=== PATIENT | female | born 1960 | race Caucasian/White ===

== ENCOUNTER 2017-06-07 09:10 | Emergency (ER) | payer BC ==
[2017-06-07 09:21] VITALS: BP 127/71
--- NOTE | 2017-06-07 09:38 | UC ---
Lower Extremity/Ankle HPI - HPI Summary HPI Summary: 56 yo female injured right foot stepping off boat onto dock jammed it injured yesterday now unable to bear wt and using crutches - History of Current Complaint Chief Complaint: UCLowerExtremity Stated Complaint: FOOT INJURY Time Seen by Provider: 06/07/17 09:28 Hx Obtained From: Patient Onset/Duration: Gradual Onset, Lasting Hours Severity Initially: Mild Severity Currently: Moderate Pain Intensity: 0 - at rest Pain Scale Used: 0-10 Numeric Aggravating Factor(s): Standing, Ambulation Alleviating Factor(s): Rest Able to Bear Weight: No - Allergies/Home Medications Allergies/Adverse Reactions: Allergies Allergy/AdvReac Type Severity Reaction Status Date / Time No Known Allergies Allergy Verified 06/07/17 09:21 PMH/Surg Hx/FS Hx/Imm Hx Previously Healthy: Yes - Surgical History Surgical History: None - Family History Known Family History: Negative: Cardiac Disease, Hypertension, Diabetes - Social History Alcohol Use: None Substance Use Type: None Smoking Status (MU): Never Smoked Tobacco Review of Systems Constitutional: Negative Skin: Negative Eyes: Negative ENT: Negative Respiratory: Negative Cardiovascular: Negative Gastrointestinal: Negative Genitourinary: Negative Motor: Negative Neurovascular: Negative Musculoskeletal: Arthralgia Neurological: Negative Psychological: Negative Is Patient Immunocompromised?: No All Other Systems Reviewed And Are Negative: Yes Physical Exam Triage Information Reviewed: Yes Appearance: Well-Appearing, No Pain Distress, Well-Nourished Vital Signs: Initial Vital Signs Temp 97.8 F 06/07/17 09:15 Pulse 55 06/07/17 09:15 Resp 16 06/07/17 09:15 BP 127/71 06/07/17 09:15 Pulse Ox 100 06/07/17 09:15 Vital Signs Reviewed: Yes Eyes: Positive: Conjunctiva Clear ENT: Positive: Hearing grossly normal. Negative: Nasal congestion, Nasal drainage, Trismus, Muffled/hoarse voice Neck: Positive: Supple, Nontender Respiratory: Positive: Lungs clear, Normal breath sounds, No respiratory distress Cardiovascular: Positive: RRR, No Murmur Musculoskeletal: Positive: Strength Intact, ROM Intact, Other: - tender dorsum or mid foot/no swelling or deformity Neurological: Positive: Alert Psychological Exam: Normal Skin Exam: Normal Diagnostics - Radiology No standard instances Xray Interpretation: No Acute Changes Radiology Interpretation Completed By: Radiologist Lower Extremity Course/Dx - Differential Dx/Diagnosis Provider Diagnoses: right foot sprain Discharge - Discharge Plan Condition: Stable Disposition: HOME Patient Education Materials: Foot Sprain (ED) Referrals: Socorro Burrell MD [Primary Care Provider] -
--- NOTE | 2017-06-07 10:10 | RAD ---
Indication: RIGHT whole foot pain following stepping down into a boat. Comparison: No relevant prior exams available on the [facility] PACS for comparison. Technique: AP, lateral, and oblique views RIGHT foot. REPORT AND IMPRESSION: Bone density appears decreased throughout. No fracture or radiographic stigmata of stress reaction evident. Mild osteoarthritis at the first metatarsal phalangeal joint and interphalangeal joint of the great toe. Small os tibiale externum accessory ossicle. Unremarkable soft tissue contours.
== END 2017-06-07 10:27 | disposition home or self-care (01) ==
LOC: UCEAST 09:10
DX: S93.601A Unspecified sprain of right foot, initial encounter (principal); W23.0XXA Caught, crushed, jammed, or pinched between moving objects, initial encounter; Y93.89 Activity, other specified; Y92.89 Other specified places as the place of occurrence of the external cause
CPT/HCPCS: 99211; G0463

== ENCOUNTER 2017-06-23 07:32 | Emergency (ER) | payer BC ==
[2017-06-23 08:00] VITALS: BP 158/87
--- NOTE | 2017-06-23 08:23 | UC ---
Cardiac HPI - HPI Summary HPI Summary: ONSET OF LEFT ANTERIOR CHEST PAIN 4 DAYS AGO. DESCRIBED A BURNING/HEAVINESS. HAS SEVERAL EPISODES A DAY LASTING ABOUT 15 MINUTES. DENIES SOB, NAUSEA, SWEATS , BACK PAIN OR RADIATION OF THE PAIN. NO DIZZINESS. DID SOME HEAVY LIFTING LAST WEEK AND THOUGHT SHE PULLED A MUSCLE BUT PIN IS INTERMITTENT AND NOT IMPROVING. IS VERY STRESSED THESE DAYS WITH FAMILY ILLNESS. - History of Current Complaint Stated Complaint: CHEST COMPLAINT Time Seen by Provider: 06/23/17 07:36 Hx Obtained From: Patient Onset/Duration: Sudden Onset, Lasting Days, Still Present Timing: Intermittent Episodes Lasting: - 15 MINUTES Initial Severity: Moderate Current Severity: Moderate Pain Intensity: 1 Chest Pain Location: Left Anterior Character: Skipped Beats, Burning, Heaviness Aggravating Factor(s): Nothing Alleviating Factor(s): Spontaneous Resolution Associated Signs & Symptoms: Positive: Chest Pain, Recent Stress, Palpitations. Negative: Weakness, Dizziness, SOB, Fever, Diaphoresis, Nausea/Vomiting, Cough , Back Pain - Allergy/Home Medications Allergies/Adverse Reactions: Allergies Allergy/AdvReac Type Severity Reaction Status Date / Time No Known Allergies Allergy Verified 06/23/17 07:49 Home Medications: Home Medications Ciprofloxacin [Cipro 500 MG/5 ML SUSP] 500 mg PO BID 06/23/17 [History Confirmed 06/23/17] PMH/Surg Hx/FS Hx/Imm Hx Previously Healthy: Yes - Surgical History Surgical History: Yes Surgery Procedure, Year, and Place: - Family History Known Family History: Positive: Cardiac Disease - FATHER AND PGF IN 50s AND 49 YO RESPECTIVELY Negative: Hypertension, Diabetes - Social History Alcohol Use: None Substance Use Type: None Smoking Status (MU): Never Smoked Tobacco Review of Systems Constitutional: Negative Respiratory: Negative Cardiovascular: Palpitations, Chest Pain Gastrointestinal: Negative All Other Systems Reviewed And Are Negative: Yes Physical Exam Triage Information Reviewed: Yes Appearance: Well-Appearing, No Pain Distress, Well-Nourished Vital Signs: Initial Vital Signs Temp 99.0 F 06/23/17 07:50 Pulse 61 06/23/17 07:50 Resp 16 06/23/17 07:50 BP 158/87 06/23/17 07:50 Pulse Ox 100 06/23/17 07:50 Vital Signs Reviewed: Yes Eyes: Positive: Conjunctiva Clear ENT: Positive: Hearing grossly normal Neck: Positive: Supple Respiratory Exam: Normal Cardiovascular Exam: Normal Abdomen Description: Positive: Soft Musculoskeletal: Positive: No Edema Neurological: Positive: Alert Psychological: Positive: Age Appropriate Behavior Skin: Negative: rashes Diagnostics - EKG Cardiac Rate: NL - 74BPM Cardiac Rhythm: Sinus: Normal Ectopy: PVCs ST Segment: Non-Specific - <1MM ST DEPRESSION DIFFUSELY - Assessment/Plan Course Of Treatment: TO [facility] BY [facility] CAR. PT DECLINES AMBULANCE. - Clinical Impression Provider Diagnoses: CHEST PAIN/PALPITATIONS Discharge - Discharge Plan Condition: Stable Disposition: OTHER Discharge Disposition Comment: TO [facility] Patient Education Materials: Chest Pain (ED), Palpitations (ED) Referrals: Socorro Burrell MD [Primary Care Provider] - If Needed Additional Instructions: GO DIRECTLY TO THE [facility] FROM HERE FOR FURTHER EVALUATION. YOUR BLOOD PRESSURE WAS ELEVATED TODAY. THIS MAY BE DUE TO YOUR ACUTE CONDITION. MONITOR AND FOLLOW-UP WITH YOUR PCP WITHIN 4 WEEKS IF IT HAS NOT RETURNED TO NORMAL.
== END 2017-06-23 08:33 ==
LOC: UCEAST 07:32
DX: R07.9 Chest pain, unspecified (principal); R00.2 Palpitations
CPT/HCPCS: 93005; 99211; G0463

== ENCOUNTER 2017-06-23 09:03 | Observation (INO) | payer BC ==
--- NOTE | 2017-06-23 09:56 | RAD ---
HISTORY: chest pain COMPARISONS: None VIEWS: 1: frontal portable view of the chest at 9:40 FINDINGS: LINES AND TUBES: None. CARDIOMEDIASTINAL SILHOUETTE: The cardiomediastinal silhouette is normal for portable technique. PLEURA: The costophrenic angles are sharp. No pleural abnormalities are noted. LUNG PARENCHYMA: The lungs are clear. ABDOMEN: The upper abdomen is clear. There is no subphrenic gas. BONES AND SOFT TISSUES: No bone or soft tissue abnormalities are noted. IMPRESSION: NO ACTIVE CARDIOPULMONARY DISEASE.
[2017-06-23 09:57] LABS: Hematocrit 43 % (35-47); Hemoglobin 14.4 g/dl (12.0-16.0); Mean Corpuscular HGB Conc 34 g/dl (31-36); Mean Corpuscular Hemoglobin 31 pg (27-31); Mean Corpuscular Volume 91 fL (80-97); Mean Platelet Volume 9 um3 (7.4-10.4); Red Blood Count 4.68 10^6/ul (4.0-5.4); Red Cell Distribution Width 13 % (10.5-15); White Blood Count 5.7 10^3/ul (3.5-10.8)
[2017-06-23 10:17] LABS: Albumin 4.3 g/dL (3.2-5.2); BUN/Creatinine Ratio 14.3 (8-20); Calcium 9.5 mg/dL (8.6-10.3); EGFR African American 81.4 (>60); EGFR Non-African American 63.3 (>60); Globulin 3.2 g/dL (2-4); Magnesium 1.8 mg/dL (1.9-2.7); Total Bilirubin 0.9 mg/dL (0.2-1.0); Total Protein 7.5 g/dL (6.4-8.9); Troponin I 0.01 ng/mL (<0.04)
--- NOTE | 2017-06-23 10:24 | ED ---
HPI Chest Pain - HPI Summary HPI Summary: 57 female presents to ED from with complaints of sudden onset of left anterior chest pain that began ~ 4 days ago. Described as a soreness, sometimes burning/heaviness. Has several episodes a day lasting different lengths of time every episode on average ~15 minutes. States she did some heavy lifting last week and thought she pulled a muscle however pain is intermittent and not improving. States this morning on way to UC/ER she feels as the pain became slightly more constant, she does not know if it was because she was anxious. States she has been under a lot of stress over the past couple of days with work and family illness. Does not know if this is related to stress. Denies SOB , nausea, sweats, weakness, back pain, radiation of pain or recent illness/cold symptoms. Does not relate pain to certain time of day, exertion, rest, position , or food. NO excessive belching or history of GERD. Nothing makes pain better or worse. No PMHx. Has not taken any medication and does not take daily medications. Family history strong for cardiac disease. Father and grandfather passing away at 50's due to MT. - History of Current Complaint Chief Complaint: EDChestPainROMI Time Seen by Provider: 06/23/17 09:32 Hx Obtained From: Patient Onset/Duration: Started Days Ago, Still Present Timing: Intermittent, Lasting Minutes Initial Severity: Mild Current Severity: Mild Pain Intensity: 0 Pain Scale Used: 0-10 Numeric Chest Pain Location: Left Anterior Chest Pain Radiates: No Character: Burning, Dull/Aching, Fluttering - one time for a few seconds and not since, Heaviness Aggravating Factor(s): Nothing Alleviating Factor(s): Nothing Associated Signs and Symptoms: Positive: Chest Pain, Recent Stress. Negative: Numbness, Tingling, Dizziness, Shortness of Breath, Swelling, Fever, Lightheadedness, Diaphoresis, Nausea, Cough - Allergy/Home Medications Allergies/Adverse Reactions: Allergies Allergy/AdvReac Type Severity Reaction Status Date / Time No Known Allergies Allergy Verified 06/23/17 09:12 Home Medications: Home Medications NK [No Home Medications Reported] 06/23/17 [History Confirmed 06/23/17] PMH/Surg Hx/FS Hx/Imm Hx Endocrine/Hematology History: Denies: Hx Diabetes, Hx Thyroid Disease Cardiovascular History: Denies: Hx Hypercholesterolemia, Hx Hypertension, Hx Peripheral Vascular Disease Respiratory History: Denies: Hx Asthma, Hx Chronic Obstructive Pulmonary Disease (COPD) GI History: Denies: Hx Ulcer Musculoskeletal History: Denies: Hx Arthritis, Hx Osteoporosis, Hx Scoliosis Sensory History: Denies: Hx Cataracts, Hx Contacts or Glasses, Hx Glaucoma Opthamlomology History: Denies: Hx Cataracts, Hx Contacts or Glasses, Hx Glaucoma Neurological History: Reports: Hx Headaches Denies: Hx Seizures, Hx Transient Ischemic Attacks (TIA), Other Neuro Impairments/Disorders Psychiatric History: Denies: Hx Anxiety, Hx Depression - Surgical History Surgery Procedure, Year, and Place: - Immunization History Immunizations Up to Date: Yes Infectious Disease History: No Infectious Disease History: Denies: Hx Clostridium Difficile, Hx Hepatitis, Hx Human Immunodeficiency Virus (HIV), Hx of Known/Suspected MRSA, Hx Shingles, Hx Tuberculosis, Hx Known/ Suspected VRE, Hx Known/Suspected VRSA, History Other Infectious Disease, Traveled Outside the [place] in Last 30 Days - Family History Known Family History: Positive: Cardiac Disease - FATHER AND PGF IN 50s AND 49 YO RESPECTIVELY due to MT Negative: Hypertension, Diabetes - Social History Alcohol Use: Rare Substance Use Type: Reports: None Smoking Status (MU): Never Smoked Tobacco Review of Systems Constitutional: Negative Positive: Palpitations, Chest Pain Respiratory: Negative Gastrointestinal: Negative Musculoskeletal: Negative Skin: Negative Neurological: Negative Positive: Other - stressed All Other Systems Reviewed And Are Negative: Yes Physical Exam Triage Information Reviewed: Yes Vital Signs On Initial Exam: Initial Vitals Temp Pulse Resp BP Pulse Ox 98.4 F 61 16 135/60 99 06/23/17 09:11 06/23/17 09:11 06/23/17 09:11 06/23/17 09:11 06/23/17 09:11 Vital Signs Reviewed: Yes Appearance: Positive: Well-Appearing, No Pain Distress, Well-Nourished Skin: Positive: Warm, Skin Color Reflects Adequate Perfusion, Dry. Negative: Cold, Numb, Diaphoretic, Jaundiced, Pale, Erythema @ Head/Face: Positive: Normal Head/Face Inspection Eyes: Positive: EOMI, TY, Conjunctiva Clear ENT: Positive: Normal ENT inspection, Hearing grossly normal, Pharynx normal Neck: Positive: Supple, Nontender, No Lymphadenopathy Respiratory/Lung Sounds: Positive: Clear to Auscultation, Breath Sounds Present. Negative: Decreased Breath Sounds, Rales, Rhonchi, Wheezes Cardiovascular: Positive: Normal, RRR, Pulses are Symmetrical in both Upper and Lower Extremities - 2+ radial/pedal, Other - nonreproducible. cap refill < 2 seconds, normal skin turgor. Negative: Murmur, Rub, Leg Edema Left, Leg Edema Right Abdomen Description: Positive: Nontender, No Organomegaly, Soft, Other: - no tenderness of epigastric region. Negative: Bruit, CVA Tenderness (R), CVA Tenderness (L), Distended, Guarding, Peritoneal Signs, Pulsatile Mass Bowel Sounds: Positive: Present Musculoskeletal: Positive: Normal, Strength/ROM Intact. Negative: Limited @, Interruption @, Pain @ Neurological: Positive: Normal, Sensory/Motor Intact, Alert, Oriented to Person Place, Time, Reflexes Intact, NV Bundle Intact Distally, Normal Gait, Facial Symmetry, Speech Normal Psychiatric: Positive: Affect/Mood Appropriate - Darnell Coma Scale Best Eye Response: 4 - Spontaneous Best Motor Response: 6 - Obeys Commands Best Verbal Response: 5 - Oriented Coma Scale Total: 15 Diagnostics - Vital Signs Vital Signs Temp Pulse Resp BP Pulse Ox 06/23/17 09:34 11 126/78 99 06/23/17 09:11 98.4 F 61 16 135/60 99 - Laboratory Lab Results: Lab Results 06/23/17 06/23/17 06/23/17 Range/Units 09:45 09:45 09:45 WBC 5.7 (3.5-10.8) 10^3/ul RBC 4.68 (4.0-5.4) 10^6/ul Hgb 14.4 (12.0-16.0) g/dl Hct 43 (35-47) % MCV 91 (80-97) fL MCH 31 (27-31) pg MCHC 34 (31-36) g/dl RDW 13 (10.5-15) % Plt Count 193 (150-450) 10^3/ul MPV 9 (7.4-10.4) um3 Neut % (Auto) 58.0 (38-83) % Lymph % (Auto) 33.2 (25-47) % Concho % (Auto) 7.6 (1-9) % Eos % (Auto) 0.7 (0-6) % Baso % (Auto) 0.5 (0-2) % Absolute Neuts (auto) 3.3 (1.5-7.7) 10^3/ul Absolute Lymphs (auto) 1.9 (1.0-4.8) 10^3/ul Absolute Monos (auto) 0.4 (0-0.8) 10^3/ul Absolute Eos (auto) 0 (0-0.6) 10^3/ul Absolute Basos (auto) 0 (0-0.2) 10^3/ul Absolute Nucleated RBC 0 10^3/ul Nucleated RBC % 0.1 Sodium 137 (133-145) mmol/L Potassium 4.0 (3.5-5.0) mmol/L Chloride 104 (101-111) mmol/L Carbon Dioxide 25 (22-32) mmol/L Anion Gap 8 (2-11) mmol/L BUN 13 (6-24) mg/dL Creatinine 0.91 (0.51-0.95) mg/dL Est GFR ( Amer) 81.4 (>60) Est GFR (Non-Af Amer) 63.3 (>60) BUN/Creatinine Ratio 14.3 (8-20) Glucose 103 H (70-100) mg/dL Lactic Acid 1.1 (0.5-2.0) mmol/L Calcium 9.5 (8.6-10.3) mg/dL Magnesium 1.8 L (1.9-2.7) mg/dL Total Bilirubin 0.90 (0.2-1.0) mg/dL AST 18 (13-39) U/L ALT 12 (7-52) U/L Alkaline Phosphatase 53 (34-104) U/L Troponin I 0.01 (<0.04) ng/mL Total Protein 7.5 (6.4-8.9) g/dL Albumin 4.3 (3.2-5.2) g/dL Globulin 3.2 (2-4) g/dL Albumin/Globulin Ratio 1.3 (1-3) TSH Pending Result Diagrams: 06/23/17 09:45 06/23/17 09:45 Lab Statement: Any lab studies that have been ordered have been reviewed, and results considered in the medical decision making process. - Radiology chest Xray Interpretation: No Acute Changes - NO ACTIVE CARDIOPULMONARY DISEASE. Radiology Interpretation Completed By: Radiologist - EKG EKG Cardiac Rate: NL, Bradycardia EKG Rhythm: Sinus Bradycardia ST Segment: Normal Ectopy: None EKG Interpretation: Normal sinus rhythm, bradycardia, no STEMI, slight ST inf/ lateral dep <1mm EKG Comparison: Other - , showed <1mm ST depression and PVC Re-Evaluation - Re-Evaluation First Eval Re-Evaluation Time: 11:45 Change: Unchanged - patient is still feeling fine. updated on lab and imaging results. spoke with about EKG changes and hospitalist consult for possible observation/admission for further cardiac work up. Chest Pain Course/Dx - Course Course Of Treatment: labs obtained, TSH and Troponin. Unremarkable. Normal vitals, normal EKGw while in ED. patients pain no change after aspirin. does not appear to be acid reflux. chest x-ray obtained and negative. appears to be suffering from possible anxiety/stress related however due to significant EKG changes within the past couple of hours from UC to ED spoke with hospitalist for observation. Patient agreed. Dr Liborio Metz NP accepted patient at 12: 00pm. Will be admitted to be observed and for stress test for further cardiac evaluation. Strong family history. - Chest Pain Differential Diagnosis/HQI/PQRI: Acute MT, ACS, Chest Wall, Lower Respiratory Infection, Other: - anxiety, stress - Diagnoses Provider Diagnoses: Chest pain, Acute electrocardiogram changes - Provider Notifications Discussed Care Of Patient With: Dr Liborio Metz NP Time Discussed With Above Provider: 12:00 Instructed by Provider To: Admit As Inpatient Discharge - Discharge Plan Condition: Stable Disposition: ADMITTED TO [facility] Referrals: Socorro Burrell MD [Primary Care Provider] -
[2017-06-23] MEDS ORDERED: Aspirin TAB* 325 MG PO ONE (10:36)
[2017-06-23 12:22] LABS: TSH (Thyroid Stimulating Horm) 1.29 mcIU/mL (0.34-5.60)
[2017-06-23] MEDS ORDERED: Acetaminophen TAB* 325 MG PO PRN (12:36)
[2017-06-23] MEDS ORDERED: Ondansetron INJ* 2 MG/ML VIAL IV PRN (12:36)
[2017-06-23] MEDS ORDERED: Magnesium Sulfate 2 GM IV* 2 GM/50 ML BAG IVPB ONE (12:45)
--- NOTE | 2017-06-23 15:57 | HP ---
CC: Dr. Socorro Burrell * HISTORY AND PHYSICAL: DATE OF ADMISSION: 06/23/17 PRIMARY CARE PROVIDER: Dr. Socorro Burrell. ATTENDING PHYSICIAN WHILE IN THE HOSPITAL: Dr. Chahal * (report dictated by Isaías Phelps NP). CHIEF COMPLAINT: Chest pain. HISTORY OF PRESENT ILLNESS: Ms. Sanchez is a 57-year-old female patient, who comes into the ED complaining of chest discomfort. She states she typically works out 3 times a week. She says when she does that she is not having any chest pain or shortness of breath, but she noticed that after working out on , the next day on Thursday, she started having some ache mostly in the chest area. She describes it as a dull ache that comes and goes, that came and went throughout the weekend and woke her up out of bed on Thursday. She had no associated symptoms of shortness of breath, cough, fevers. She has not been sick recently. Interestingly enough though, she recently did take a trip to [place] with her family. She denied having any recent coughs or fevers and she says the pain just got worse, was not going away or getting any better, so she decided to come into the ED. She does have a family history; her father did of a coronary artery disease, so that was concerning to her. She came in, was evaluated. Because of the family history and her symptoms, we were asked to evaluate on admission. There was no associated nausea, vomiting, diarrhea, or abdominal pain. PAST MEDICAL HISTORY: Significant for question of SVT, she states she did have an arrhythmia in the past. She stopped drinking caffeine and it got better. PAST SURGICAL HISTORY: She has had a . MEDICATIONS: Home medications include Cipro 1 tablet p.o. b.i.d. as needed for UTI. ALLERGIES TO MEDICATIONS: Include no known drug allergies. FAMILY HISTORY: Mother had a history of hypertension. Father had a history of CAD. SOCIAL HISTORY: She does not smoke, does not drink. She exercises 3 times a week. Her surrogate decision maker is her . REVIEW OF SYSTEMS: There is no documented fever. She denied having any significant weight change. There was no double vision. She denies having any ear discharge. There is no rhinorrhea. No sore throat, no thyroid enlargement. Chest pain from my HPI. No orthopnea, there is no nocturnal dyspnea. There was no abdominal pain. No nausea, no vomiting. No dysuria, no frequency. There was no seizure. No loss of consciousness. No pruritus and no skin ulceration. Review of 14-systems completed, all others negative. PHYSICAL EXAMINATION GENERAL: At this time, Ms. Sanchez is a 57-year-old female patient. She came into the ER today with complaints of chest discomfort. She appears to be well- nourished, well-developed. VITAL SIGNS: Reveal blood pressure 144/82, pulse 67, respirations 20, O2 sat 97 %, temperature 98.4. HEENT: Head atraumatic, normocephalic. Eyes: EOMs intact. Sclerae anicteric , not pale. Throat: Oral mucosa appears to be moist. No oropharyngeal erythema. NECK: Supple. LUNGS: Clear to auscultation bilaterally. No wheezes, rales, or rhonchi. HEART: Sounds S1 and S2. Regular rate and rhythm. No murmurs, rubs, or gallops. ABDOMEN: Soft, flat, nontender. Bowel sounds present. EXTREMITIES: Pulses 2+ throughout. She had no peripheral edema. She is able to move all 4 extremities with 5/5 strength. NEUROLOGIC: The patient is awake, alert, and oriented x3. Tongue midline. Ski Base Trimmer equal. No gross focal deficits. SKIN: Grossly intact. DIAGNOSTIC STUDIES/LAB DATA: Revealed WBC of 5.9, RBC 4.68, hemoglobin 14.4, hematocrit of 43, platelet count of 193. Sodium is 137, potassium is 4.0, chloride of 104, bicarb 28, BUN 13, creatinine 0.91, glucose 103, lactate 1.1, mag 1.8. Total bili 0.9, AST 18, ALT 12, alk phos 53. Troponin 0.01. Albumin 4.3. TSH normal. The patient did have a chest x-ray obtained today which revealed no active cardiopulmonary disease. There was an EKG obtained today, which showed sinus bradycardia, rate of 59. She did have some subtle depression at V4, 5, and 6, and a flat T wave in lead III. The EKG from [facility] at 7:00 this morning showed again sinus rhythm with the ST depression at V4, 5, and 6. Old medical records reviewed. ASSESSMENT AND PLAN: Ms. Sanchez is a 57-year-old female patient coming into the ER today with complaints of chest pain. She will be admitted under observation status for: 1. Chest pain. Again, at this point, she does have family history which makes this concerning for possibly acute coronary syndrome, although I suspect less likely. She does exercise 3 times a day. She says on Thursday, she did go for a long half an hour walk and then she felt fine doing this, and she did not have any chest pain. My plan would be to get a nuclear stress test, cycle her troponins, place her on telemetry, get an EKG, and I am going to start her on aspirin. She did get an aspirin already today and will follow closely. She will be n.p.o. after midnight. I am going to add on D-dimer as well, given the recent travel. 2. Question of supraventricular tachycardia. We will monitor her on telemetry , as she did complain of some palpitations on while working out. 3. DVT prophylaxis. She will be placed on SCDs. 4. Code status. Full code. TIME SPENT: On this admission was approximately 60 minutes, greater than half the time spent [id number] with the patient obtaining my history and physical, the other half the time was spent going over the plan of care with the patient and implementing the plan of care. I did discuss the plan of care my attending, Dr. Chahal; she is in agreement. ISAÍAS PHELPS, ARCHANA [id number]/[facility] #: [id number] [place]
[2017-06-24 05:15] LABS: Hematocrit 40 % (35-47); Hemoglobin 13.8 g/dl (12.0-16.0); Mean Corpuscular HGB Conc 35 g/dl (31-36); Mean Corpuscular Hemoglobin 31 pg (27-31); Mean Corpuscular Volume 90 fL (80-97); Mean Platelet Volume 10 um3 (7.4-10.4); Red Blood Count 4.42 10^6/ul (4.0-5.4); Red Cell Distribution Width 12 % (10.5-15); White Blood Count 5.2 10^3/ul (3.5-10.8)
[2017-06-24 05:33] LABS: Calcium 8.6 mg/dL (8.6-10.3); EGFR African American 84.6 (>60); EGFR Non-African American 65.8 (>60); HDL Cholesterol 49.5 mg/dL; Potassium 3.7 mmol/L (3.5-5.0)
[2017-06-24 07:36] VITALS: BP 146/90
[2017-06-24] MEDS ORDERED: Aspirin Low Dose CHEW TAB* 81 MG PO SCH (09:00)
--- NOTE | 2017-06-24 12:44 | RAD ---
HISTORY: Chest pain COMPARISONS: None TECHNIQUE: A 1 day stress/rest myocardial perfusion study was performed, with exercise stress. The exercise portion was performed using the Hubert protocol, for a total METs of 12.8. The stress portion was monitored by Dr. Riley. Gated SPECT imaging was performed, with CT-based attenuation correction DOSE: Stress: Technetium 99m tetrofosmin, 25.87 millicuries, injected at 11:29 AM on June 24, 2017 Rest: Technetium 99m tetrofosmin, 10.99 millicuries, injected at 6:25 AM on June 24, 2017 Pharmacologic agent: None FINDINGS: CARDIAC MONITORING: Peak heart rate of 167 bpm, 104% of predicted EF: 80 % TID: 0.77 MOTION: Normal motion, with normal wall thickening. PERFUSION: There is a small reversible defect of the inferior septum OTHER: None IMPRESSION: SMALL REVERSIBLE DEFECT OF THE INFERIOR ASPECT OF THE SEPTUM ASSESSMENT: LOW RISK. Based on imaging criteria from ACC/AHA 2002. Guideline Update for the Management of Patient's with Chronic Stable Angina, table 23. Noninvasive Risk Stratification.
--- NOTE | 2017-06-25 00:55 | DS ---
CC: Socorro Burrell MD * DISCHARGE SUMMARY: DATE OF ADMISSION: 06/23/17 DATE OF DISCHARGE: 06/24/17 PRIMARY CARE PROVIDER: Socorro Burrell MD DISCHARGING PROVIDER: DEBRA Castañeda SUPERVISING PHYSICIAN: Hernesto Nowak MD * (DICTATED BY DEBRA CASTAÑEDA) PRIMARY DISCHARGE DIAGNOSIS: Chest pain - likely noncardiac. DISCHARGE MEDICATIONS: Start aspirin 81 mg p.o. daily. Medication changes: Start aspirin. HOSPITAL IMAGIN. Chest x-ray. No acute process. 2. Nuclear stress test shows a small reversible defect in the inferior aspect of the septum read as a low risk study. 3. EKG shows normal sinus rhythm with an occasional PVC on multiple occasions. HOSPITAL COURSE: This is a 57-year-old female who is otherwise healthy, but does have a strong family history of coronary disease who presented to the emergency department with complaints of chest pain. She exercises frequently and stated that after her workouts on and Thursday of last week, she experienced some aching chest pain and then that was intermittent over the weekend, which prompted her to seek care in the emergency department. She denied any associated symptoms. Initial EKG was benign as well as initial troponin. The patient was subsequently brought into the hospital for a period of observation and continuous telemetry monitoring. There were no dysrhythmias appreciated and she underwent stress testing the morning of discharge. There was a small area of reversible ischemia appreciated on nuclear scan. The patient was asymptomatic during her stress test. This was read as a low-risk study and recommendation is for medical management. Fasting lipid panel was completed, which included a total cholesterol of 203 with an LDL of 138 mg/dL. I recommended starting a daily Baby aspirin as well as a statin. The patient was resistant to consider a statin at this time, but was agreeable to starting a daily aspirin therapy. DISPOSITION AND FOLLOWUP PLAN: The patient is being discharged to home. She will start daily aspirin as discussed above. She would like to trial a period of dietary restriction to treat her cholesterol rather than start a statin. She will follow up with her primary care provider for a repeat lipid testing in 2 to 3 months. Chest pain is most likely noncardiac in origin. Recommend followup with primary care in 1 to 2 weeks. DEBRA CASTAÑEDA [id number]/[facility] #: [id number] [facility] HOSPITALRyann
== END 2017-06-24 14:15 | disposition home or self-care (01) ==
LOC: ED 09:03 → MEDTELE 12:33
PROVIDERS: ADMIT Internal Medicine; ATTEND Hospitalist
DX: R07.89 Other chest pain (principal); I49.3 Ventricular premature depolarization; F43.9 Reaction to severe stress, unspecified; R00.1 Bradycardia, unspecified
CPT/HCPCS: 36415; 71010; 78452; 80048; 80053; 80061; 83036; 83605; 83735; 84443; 84484; 85025; 85379; 85610; 93005; 93017; 96365; 96366; 99284; A9270-GY; A9502; G0378; J3475

== ENCOUNTER 2017-09-09 20:37 | Emergency (ER) | payer BC ==
[2017-09-09 21:12] LABS: Urine Appearance Clear; Urine Blood Negative (Negative); Urine Color Yellow; Urine Ketones Trace (Negative); Urine Protein Negative (Negative); Urine Specific Gravity 1.018 (1.010-1.030); Urine Urobilinogen Negative (Negative)
[2017-09-09 21:49] LABS: ABS Basophils 0.1 10^3/ul (0-0.2); ABS Eosinophils 0.2 10^3/ul (0-0.6); ABS Lymphocytes 1.3 10^3/ul (1.0-4.8); ABS Monocytes 0.7 10^3/ul (0-0.8); ABS Neutrophils 6.6 10^3/ul (1.5-7.7); ABS Nucleated RBC 0.01 10^3/ul; Eosinophil % 2.6 % (0-6); Hematocrit 40 % (35-47); Hemoglobin 13.9 g/dl (12.0-16.0); Lymphocyte % 14.8 % (25-47); Mean Corpuscular HGB Conc 35 g/dl (31-36); Mean Corpuscular Hemoglobin 31 pg (27-31); Mean Corpuscular Volume 90 fL (80-97); Mean Platelet Volume 9 um3 (7.4-10.4); Nucleated Red Blood Cells % 0.1; Platelet Count 162 10^3/ul (150-450); Red Blood Count 4.44 10^6/ul (4.0-5.4); Red Cell Distribution Width 13 % (10.5-15); White Blood Count 8.9 10^3/ul (3.5-10.8)
[2017-09-09 22:03] LABS: INR 0.93 (0.77-1.02)
[2017-09-09 22:04] LABS: EGFR Non-African American 69.4 (>60)
--- NOTE | 2017-09-09 22:32 | ED ---
GI/ HPI - HPI Summary HPI Summary: 57F presents with achy feeling today. She states she has been treated for uti this past week. She was initially on cipro but then switched to nitro. She has been taking this the past week but states the uti symptoms have persistent. She has history of UTI infection that follows dr rubalcava for. She states she has not seen dr rubalcava for this uti. She states she talked to her primary today who sent a script for augmentin bid [id number] which she took one dose at 1:30pm. She states she was feeling achy all over. no fever, abdominal pain, flank pain, urgency, frequency, or hematuira. no nausea, vomiting, or diarrhea. She takes took advil this after and that this has resolved the ache. no one else is sick. - History of Current Complaint Chief Complaint: EDUrogenitalProblems Time Seen by Provider: 09/09/17 21:59 Stated Complaint: FEVER/DISCOMFORT URINATING Pain Intensity: 0 - Additional Pertinent History Primary Care Physician: DIANE - Allergy/Home Medications Allergies/Adverse Reactions: Allergies Allergy/AdvReac Type Severity Reaction Status Date / Time No Known Allergies Allergy Verified 06/23/17 09:12 PMH/Surg Hx/FS Hx/Imm Hx Endocrine/Hematology History: Denies: Hx Diabetes, Hx Thyroid Disease Cardiovascular History: Reports: Hx Angina Denies: Hx Coronary Artery Disease, Hx Hypercholesterolemia, Hx Hypertension , Hx Myocardial Infarction, Hx Peripheral Vascular Disease, Hx Valvular Heart Disease Respiratory History: Denies: Hx Asthma, Hx Chronic Obstructive Pulmonary Disease (COPD) GI History: Denies: Hx Ulcer Musculoskeletal History: Denies: Hx Arthritis, Hx Osteoporosis, Hx Scoliosis Sensory History: Reports: Hx Contacts or Glasses - reading Denies: Hx Cataracts, Hx Glaucoma, Hx Hearing Aid Opthamlomology History: Reports: Hx Contacts or Glasses - reading Denies: Hx Cataracts, Hx Glaucoma Neurological History: Reports: Hx Headaches Denies: Hx Seizures, Hx Transient Ischemic Attacks (TIA), Other Neuro Impairments/Disorders Psychiatric History: Denies: Hx Anxiety, Hx Depression - Surgical History Surgery Procedure, Year, and Place: 1990 - Immunization History Date of Influenza Vaccine: 06/2017 Infectious Disease History: No Infectious Disease History: Denies: Hx Clostridium Difficile, Hx Hepatitis, Hx Human Immunodeficiency Virus (HIV), Hx of Known/Suspected MRSA, Hx Shingles, Hx Tuberculosis, Hx Known/ Suspected VRE, Hx Known/Suspected VRSA, History Other Infectious Disease, Traveled Outside the [place] in Last 30 Days - Family History Known Family History: Positive: Cardiac Disease - FATHER AND PGF IN 50s AND 49 YO RESPECTIVELY due to MS Negative: Hypertension, Diabetes - Social History Alcohol Use: None Substance Use Type: Reports: None Smoking Status (MU): Never Smoked Tobacco Have You Smoked in the Last Year: No Review of Systems Negative: Fever Negative: Chest Pain Negative: Shortness Of Breath Negative: Abdominal Pain, Vomiting, Diarrhea, Nausea Positive: dysuria. Negative: frequency All Other Systems Reviewed And Are Negative: Yes Physical Exam Triage Information Reviewed: Yes Vital Signs On Initial Exam: Initial Vitals Temp Pulse Resp BP Pulse Ox 100.6 F 87 16 118/7 99 09/09/17 20:40 09/09/17 20:40 09/09/17 20:40 09/09/17 20:40 09/09/17 20:40 Vital Signs Reviewed: Yes Appearance: Positive: Well-Appearing Skin: Positive: Warm, Dry Head/Face: Positive: Normal Head/Face Inspection Eyes: Positive: Normal, EOMI, TY, Conjunctiva Clear ENT: Positive: Normal ENT inspection, Pharynx normal, TMs normal Respiratory/Lung Sounds: Positive: Clear to Auscultation, Breath Sounds Present Cardiovascular: Positive: Normal, RRR Abdomen Description: Positive: Nontender, Soft. Negative: CVA Tenderness (R), CVA Tenderness (L) Bowel Sounds: Positive: Present Musculoskeletal: Positive: Normal Neurological: Positive: Normal Psychiatric: Positive: Normal Diagnostics - Vital Signs Vital Signs Temp Pulse Resp BP Pulse Ox 09/09/17 20:40 100.6 F 87 16 118/7 99 - Laboratory Lab Results: Lab Results 09/09/17 09/09/17 09/09/17 Range/Units 20:50 21:21 21:21 WBC (3.5-10.8) 10^3/ul RBC (4.0-5.4) 10^6/ul Hgb (12.0-16.0) g/dl Hct (35-47) % MCV (80-97) fL MCH (27-31) pg MCHC (31-36) g/dl RDW (10.5-15) % Plt Count (150-450) 10^3/ul MPV (7.4-10.4) um3 Neut % (Auto) (38-83) % Lymph % (Auto) (25-47) % [place] % (Auto) (1-9) % Eos % (Auto) (0-6) % Baso % (Auto) (0-2) % Absolute Neuts (auto) (1.5-7.7) 10^3/ul Absolute Lymphs (auto) (1.0-4.8) 10^3/ul Absolute Monos (auto) (0-0.8) 10^3/ul Absolute Eos (auto) (0-0.6) 10^3/ul Absolute Basos (auto) (0-0.2) 10^3/ul Absolute Nucleated RBC 10^3/ul Nucleated RBC % INR (Anticoag Therapy) 0.93 (0.77-1.02) APTT 30.2 (26.0-36.3) seconds Sodium (133-145) mmol/L Potassium (3.5-5.0) mmol/L Chloride (101-111) mmol/L Carbon Dioxide (22-32) mmol/L Anion Gap (2-11) mmol/L BUN (6-24) mg/dL Creatinine (0.51-0.95) mg/dL Est GFR ( Amer) (>60) Est GFR (Non-Af Amer) (>60) BUN/Creatinine Ratio (8-20) Glucose (70-100) mg/dL Lactic Acid (0.5-2.0) mmol/L Calcium (8.6-10.3) mg/dL Total Bilirubin (0.2-1.0) mg/dL AST (13-39) U/L ALT (7-52) U/L Alkaline Phosphatase (34-104) U/L C-Reactive Protein (< 5.00) mg/L B-Natriuretic Peptide 98 ( - 100) pg/mL Total Protein (6.4-8.9) g/dL Albumin (3.2-5.2) g/dL Globulin (2-4) g/dL Albumin/Globulin Ratio (1-3) Lipase (11.0-82.0) U/L Urine Color Yellow Urine Appearance Clear Urine pH 8.0 (5-9) Ur Specific [place] 1.018 (1.010-1.030) Urine Protein Negative (Negative) Urine Ketones Trace H (Negative) Urine Blood Negative (Negative) Urine Nitrate Negative (Negative) Urine Bilirubin Negative (Negative) Urine Urobilinogen Negative (Negative) Ur Leukocyte Esterase 1+ H (Negative) Urine WBC (Auto) 1+(6-10/hpf) H (Absent) Urine RBC (Auto) Absent (Absent) Ur Squamous Epith Cells Present H (Absent) Urine Bacteria Absent (Absent) Urine Glucose Negative (Negative) 09/09/17 09/09/17 09/09/17 Range/Units 21:21 21:21 21:21 WBC 8.9 (3.5-10.8) 10^3/ul RBC 4.44 (4.0-5.4) 10^6/ul Hgb 13.9 (12.0-16.0) g/dl Hct 40 (35-47) % MCV 90 (80-97) fL MCH 31 (27-31) pg MCHC 35 (31-36) g/dl RDW 13 (10.5-15) % Plt Count 162 (150-450) 10^3/ul MPV 9 (7.4-10.4) um3 Neut % (Auto) 74.1 (38-83) % Lymph % (Auto) 14.8 L (25-47) % [place] % (Auto) 7.9 (1-9) % Eos % (Auto) 2.6 (0-6) % Baso % (Auto) 0.6 (0-2) % Absolute Neuts (auto) 6.6 (1.5-7.7) 10^3/ul Absolute Lymphs (auto) 1.3 (1.0-4.8) 10^3/ul Absolute Monos (auto) 0.7 (0-0.8) 10^3/ul Absolute Eos (auto) 0.2 (0-0.6) 10^3/ul Absolute Basos (auto) 0.1 (0-0.2) 10^3/ul Absolute Nucleated RBC 0.01 10^3/ul Nucleated RBC % 0.1 INR (Anticoag Therapy) (0.77-1.02) APTT (26.0-36.3) seconds Sodium 134 (133-145) mmol/L Potassium 3.6 (3.5-5.0) mmol/L Chloride 101 (101-111) mmol/L Carbon Dioxide 25 (22-32) mmol/L Anion Gap 8 (2-11) mmol/L BUN 10 (6-24) mg/dL Creatinine 0.84 (0.51-0.95) mg/dL Est GFR ( Amer) 89.2 (>60) Est GFR (Non-Af Amer) 69.4 (>60) BUN/Creatinine Ratio 11.9 (8-20) Glucose 122 H (70-100) mg/dL Lactic Acid 1.1 (0.5-2.0) mmol/L Calcium 9.3 (8.6-10.3) mg/dL Total Bilirubin 0.90 (0.2-1.0) mg/dL AST 14 (13-39) U/L ALT 11 (7-52) U/L Alkaline Phosphatase 56 (34-104) U/L C-Reactive Protein 8.09 H (< 5.00) mg/L B-Natriuretic Peptide ( - 100) pg/mL Total Protein 6.8 (6.4-8.9) g/dL Albumin 4.1 (3.2-5.2) g/dL Globulin 2.7 (2-4) g/dL Albumin/Globulin Ratio 1.5 (1-3) Lipase 30 (11.0-82.0) U/L Urine Color Urine Appearance Urine pH (5-9) Ur Specific [place] (1.010-1.030) Urine Protein (Negative) Urine Ketones (Negative) Urine Blood (Negative) Urine Nitrate (Negative) Urine Bilirubin (Negative) Urine Urobilinogen (Negative) Ur Leukocyte Esterase (Negative) Urine WBC (Auto) (Absent) Urine RBC (Auto) (Absent) Ur Squamous Epith Cells (Absent) Urine Bacteria (Absent) Urine Glucose (Negative) Result Diagrams: 09/09/17 21:21 09/09/17 21:21 Lab Statement: Any lab studies that have been ordered have been reviewed, and results considered in the medical decision making process. GIGU Course/Dx - Course Course Of Treatment: 57F presents with achy feeling today. She states she has been treated for uti this past week. She was initially on cipro but then switched to nitro. She has been taking this the past week but states the uti symptoms have persistent. She has history of UTI infection that follows dr rubalcava for. She states she has not seen dr rubalcava for this uti. She states she talked to her primary today who sent a script for augmentin bid [id number] which she took one dose at 1:30pm. She states she was feeling achy all over. no fever , abdominal pain, flank pain, urgency, frequency, or hematuira. no nausea, vomiting, or diarrhea. She takes took advil this after and that this has resolved the ache. no one else is sick. on exam abd soft nontender. labs normal wbc and lactic. urine shows uti. discussed with patient and wants to go home and continue talk augmentin and follow up tomorrow with primary. told to follow up again with dr rubalcava as states he has plan in place for her for frequent uti that she has not been following. patient understand and agrees with plan. - Diagnoses Differential Diagnoses - Female: Pyelonephritis, Sepsis, Urinary Tract Infection , Ureteral Calculi Provider Diagnoses: UTI (urinary tract infection) Discharge - Discharge Plan Condition: Good Disposition: HOME Patient Education Materials: Urinary Tract Infection in Women (ED) Referrals: Socorro Burrell MD [Primary Care Provider] - Oscar Rubalcava MD [Medical Doctor] - Additional Instructions: Continue Augmentin as prescribed Follow up with primary follow up with gini Drink plenty of fluids Return to ED if develop any new or worsening symptoms
[2017-09-09 23:12] VITALS: BP 117/75
== END 2017-09-09 23:05 | disposition home or self-care (01) ==
LOC: ED 20:37
DX: N39.0 Urinary tract infection, site not specified (principal); R30.0 Dysuria
CPT/HCPCS: 36415; 80053; 81003; 81015; 83605; 83690; 83880; 85025; 85610; 85730; 86140; 87040; 87086; 99283